=== PATIENT | female | born 1960 | race Caucasian/White ===

== ENCOUNTER 2020-07-11 07:52 | Emergency (ER) | payer OTHER, BC, SELFPAY ==
[2020-07-11 08:03] VITALS: BP 133/88; PULSE 67; RESP 16; TEMP 36.7; O2SAT 98; BMI 25.8
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
== END 2020-07-11 09:31 | disposition home or self-care (01) ==
LOC: HO.ED 08:16
PROVIDERS: Emergency Provider Emergency Medicine
DX: S13.4XXA Sprain of ligaments of cervical spine, initial encounter (principal); S09.90XA Unspecified injury of head, initial encounter; V43.52XA Car driver injured in collision with other type car in traffic accident, initial encounter; Y93.89 Activity, other specified; Y92.414 Local residential or business street as the place of occurrence of the external cause; Y99.9 Unspecified external cause status
CPT/HCPCS: 70450; 72125; 99283; 99284

== ENCOUNTER 2020-09-07 16:49 | Outpatient (REF) | payer BC, SELFPAY | END 2020-09-07 16:50 | disposition home or self-care (01) | LOC: HO.LAB 16:49 | PROVIDERS: Visit Provider Internal Medicine | DX: Z20.828 Contact with and (suspected) exposure to other viral communicable diseases (principal) | CPT/HCPCS: C9803; U0003 ==

== ENCOUNTER 2021-10-01 14:27 | Outpatient (REF) | payer BC, SELFPAY ==
[2021-10-01 15:20] LABS: Influenza A PCR NEGATIVE (Negative); Influenza B PCR NEGATIVE (Negative); Resp Syncy Virus RNA Qual PCR NEGATIVE (Negative); SARS COV2 PCR INHOUSE POSITIVE (Negative)
== END 2021-10-01 14:28 | disposition home or self-care (01) ==
LOC: HO.LNP 14:27
PROVIDERS: Visit Provider Physician Assistant
DX: Z20.822 Contact with and (suspected) exposure to COVID-19 (principal)
CPT/HCPCS: 0241U

== ENCOUNTER 2021-10-12 14:37 | Outpatient (REF) | payer BC, SELFPAY ==
--- NOTE | ~2021-10-12 | MM_ITS ---
EXAMINATION: MM SCREENING DIGITAL BREAST TOMOSYNTHESIS, BILATERAL CLINICAL INFORMATION: Screening. Asymptomatic. The lifetime risk of breast cancer based on the Tyrer-Cuzick Model is 8%. COMPARISON: Outside mammography: 06/23/2019, 02/13/2017 (Kiersten Amado). TECHNIQUE: Digital breast tomosynthesis is performed in both the craniocaudal and mediolateral oblique views along with computer-aided detection (CAD). Synthesized 2D images are generated from the tomosynthesis. Additional left MLO view is provided. FINDINGS: There are scattered areas of fibroglandular density (ACR BI-RADS breast composition Category b). There are no significant masses, abnormal calcifications, or other abnormalities. Background stromal densities are stable. There are dermal lesions again seen overlying the posterior medial bilateral breasts. There is no developing density or architectural abnormality. The axilla are unremarkable. No significant changes from outside studies. MM/MM tomosynthesis screening BI IMPRESSION: No mammographic evidence of malignancy. ASSESSMENT: BI-RADS 2: Benign RECOMMENDATION: Routine annual mammography screening. This patient's information was entered into a reminder system with a target due date for their next mammogram.
== END 2021-10-12 14:38 | disposition home or self-care (01) ==
LOC: HO.MAMMO 14:37
PROVIDERS: PCP Internal Medicine; Visit Provider Internal Medicine
DX: Z12.31 Encounter for screening mammogram for malignant neoplasm of breast (principal)
CPT/HCPCS: 77063; 77067

== ENCOUNTER 2022-01-26 17:57 | Emergency (ER) | payer OTHER, BC, SELFPAY ==
[2022-01-26 18:03] VITALS: BP 140/93; PULSE 90; RESP 16; TEMP 36.8; O2SAT 99; BMI 25.8
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
[2022-01-26] MEDS: Diphth,Pertus(ACell),Tet Adult 0.5 ML SYRINGE IM (18:54)
== END 2022-01-26 19:02 | disposition home or self-care (01) ==
PROVIDERS: Emergency Provider Emergency Medicine Emergency Medical Services
DX: M79.5 Residual foreign body in soft tissue (principal); Z18.33 Retained wood fragments
CPT/HCPCS: 90471; 90715; 99283; 99284

== ENCOUNTER 2022-10-17 15:39 | Outpatient (REF) | payer OTHER, BC, SELFPAY ==
--- NOTE | ~2022-10-17 | MM_ITS ---
EXAMINATION: MM SCREENING DIGITAL BREAST TOMOSYNTHESIS, BILATERAL CLINICAL INFORMATION: Screening. Asymptomatic. The lifetime risk of breast cancer based on the Tyrer-Cuzick Model is 8.9%. COMPARISON: Mammography: October 12, 2021 and studies dating back to February 13, 2017 TECHNIQUE: Digital breast tomosynthesis is performed in both the craniocaudal and mediolateral oblique views along with computer-aided detection (CAD). Synthesized 2D images are generated from the tomosynthesis. FINDINGS: There are scattered areas of fibroglandular density (ACR BI-RADS breast composition Category b). There are no significant masses, abnormal calcifications, or other abnormalities. MM/MM tomosynthesis screening BI IMPRESSION: No significant changes from prior exam. ASSESSMENT: BI-RADS 1: Negative RECOMMENDATION: Routine annual mammography screening. This patient's information was entered into a reminder system with a target due date for their next mammogram.
== END 2022-10-17 15:40 | disposition home or self-care (01) ==
LOC: HO.MAMMO 15:39
PROVIDERS: PCP Internal Medicine; Visit Provider Internal Medicine
DX: Z12.31 Encounter for screening mammogram for malignant neoplasm of breast (principal)
CPT/HCPCS: 77063; 77067

== ENCOUNTER → 2023-10-23 15:15 | Outpatient (BNV) | payer OTHER, SELFPAY | PROVIDERS: PCP Internal Medicine; Visit Provider Radiology Diagnostic Radiology | DX: Z12.31 Encounter for screening mammogram for malignant neoplasm of breast (principal) | CPT/HCPCS: 77063; 77067 ==

== ENCOUNTER 2023-10-23 15:23 | Outpatient (REF) | payer OTHER, SELFPAY | END 2023-10-23 15:24 | disposition home or self-care (01) | LOC: HO.MAMMO 15:23 | PROVIDERS: PCP Internal Medicine; Visit Provider Internal Medicine | DX: Z12.31 Encounter for screening mammogram for malignant neoplasm of breast (principal) | CPT/HCPCS: 77063; 77067 ==

== ENCOUNTER 2025-05-11 12:52 | Outpatient (REF) | payer OTHER, SELFPAY ==
--- OUTSIDE RECORDS SUMMARY | 2024-05-25 04:00 | XMS_ITS | Encounter Summary ---
Author Name [facility] Address [address] [place] [address] Care Team Providers Care Geophysical Manager Name Role Phone HEMA [place]SLOW Primary Care Provider Unavailabl e Insurance Providers: All historical and current Section Date Range: From patient's date of to the date document was created. This section includes the names of all active insurance providers for the patient. Insurance Provider Type of Coverage Plan Name Start of Policy Coverage End of Policy Coverage Group Number Member ID Insurance Provider's Telephone Number Policy Castro's Name Patient's Relationship to Policy Castro CATHIE BCBS CT FEDERAL PREFERRED PROVIDER ORGANIZAT ION (PPO) STAND [place]RI[place] SELF + ONE Oct 12, 2022 [id number] [phone] ARMIDA CUBA PATIENT BCBS [place] FEP PREFERRED PROVIDER ORGANIZAT ION (PPO) PSHB STD SELF PLUS 1 Sep 29, 2024 [id number] [phone] ARMIDA CUBA PATIENT [place] PREFERRED PROVIDER ORGANIZAT ION (PPO) PSHB STAND [place]RI[place] SELF+ 1 Sep 29, 2024 [id number] [phone] ARMIDA CUBA PATIENT [place] FEP DENTAL DENTAL INSURANCE STAND BEATRIZ Oct 04, 2017 DENTAL [id number] [phone] ARMIDA CUBA PATIENT [place] FEP BCBS PRESCRIPT ION CAREM ARK FEPRX Oct 12, 2022 [id number] ARMIDA CUBA PATIENT [place] FEP BCBS PRESCRIPT ION CAREM ARK FEPRX PLAN Oct 04, 2017 [id number] AMRIDA CUBA PATIENT [place]-F EP BCBS PRESCRIPT ION FEP CAREM ARK Oct 04, 2017 [id number] ARMIDA CUBA PATIENT Selected Encounter This section includes the information on record at [facility] for the Encounter. Date/Time Encounter Type Encounter Description Reason Provider Source May 25, 2024 08:00 AM OFF/OP EST JANUARY X REQ PH[facility] ICD-10-CM Z71.89 Other specified counseling THEA DIAZ Katya Encounter Template Text not used by [place] Assessments - Encounter Diagnoses This section includes the primary and secondary diagnoses documented for the Encounter. Date/Time Primary/Secondary Diagnosis Diagnosis Name Provider Source May 25, 2024 04:27 PM PRIMARY Other specified counseling THEA DIAZ MUKESH Plan of Treatment: Future Appointments (+ 6 months) and Future Tests (+/- 45 days) The Plan of Treatment section includes future care activities for the [facility] This section includes future appointments and future orders which are active, pending or scheduled. Future Appointments This section includes appointments that were scheduled to occur 6 months from the date of the Encounter, up to a maximum of 20 appointments. The data comes from all [place] treatment facilities. Appointment Date/Time Appointment Type Appointme nt Facility Name Jun 22, 2024 08:00 AM AMBULATORY - PSYCHIATRY [facility] Jul 20, 2024 09:00 AM AMBULATORY - PSYCHIATRY [facility] Jul 20, 2024 12:00 PM AMBULATORY PSYCHIATRY [facility] Aug 19, 2024 10:00 AM AMBULATORY - MEDICINE [facility] Oct 12, 2024 08:00 AM AM[facility]ATORY - MEDICINE [facility] [place] [facility] Active, Pending, and Scheduled Orders This section includes a listing of several types of active, pending, and scheduled orders, including clinic medications orders, diagnostic test orders, procedure orders and consult orders; where the start date of the order is 45 days before the date of the Encounter or 45 days after the date of theEncounter. The data comes from all [facility]. Test Date/Time Test Type Test Details Facility Name Apr 27, 2024 12:00 AM Laboratory - Chemistry Order BASIC METABOLIC PANEL (fasting) BLOOD (SST-SERUM) [facility] Apr 27, 2024 12:00 AM Laboratory - Chemistry Order LIPID PANEL FASTING BLOOD (SST-SERUM) [facility] Apr 27, 2024 12:00 AM Laboratory - Chemistry Order LIVER FUNCTION BLOOD (SST-SERUM) [facility] Apr 27, 2024 12:00 AM Laboratory - Chemistry Order CBC AND DIFF (AUTO) BLOOD (LAV-BLOOD) [facility] Apr 27, 2024 12:00 AM Laboratory - Chemistry Order HEMOGLOBIN A1C PANEL BLOOD (LAV-BLOOD) [facility] Apr 27, 2024 12:00 AM Laboratory - Chemistry Order TSH BLOOD (SST-SERUM) [facility] Apr 27, 2024 12:00 AM Laboratory - Chemistry Order VITAMIN B12 BLOOD (SST-SERUM) [facility] Apr 27, 2024 12:00 AM Laboratory - Chemistry Order CALCIUM BLOOD (SST-SERUM) [facility] Apr 27, 2024 12:00 AM Laboratory - Chemistry Order VITAMIN B-1 (THIAMINE)-(QU) BLOOD (LAV-PLASMA) [facility] Apr 27, 2024 12:00 AM Laboratory - Chemistry Order MAGNESIUM BLOOD (SST-SERUM) [facility] Apr 27, 2024 12:00 AM Laboratory - Chemistry Order VITAMIN D 25-OH (Therapy monitor) BLOOD (SST-SERUM) [facility] Social History: Smoking Status (Most current) and Tobacco Use (All prior to encounter date) This section includes the most current, and the historical, smoking and tobacco- related health factors from the [place] facility where the Encounter took place. Current Smoking Status This section includes the most current smoking, or tobacco-related health factor, from the [place] facility where the Encounter took place. Date/Time Current Smoking Status Comment Magdalena cruz Apr 20, 2024 09:00 AM VA-TOBACCO NEVER USED [facility] Tobacco Use History This section includes a history of the smoking, or tobacco-related health factors, that were collected on or before the date of the Encounter. The data comes from the [place] facility where the Encounter took place. Date/Time Smoking Status/Tobacco Use Comment F acility Apr 22, 2023 09:00 AM VA-TOBACCO NEVER USED [facility] Apr 23, 2022 02:30 PM VA-TOBACCO NEVER USED [facility] Dec 26, 2020 10:00 AM VA-TOBACCO FORMER USER [facility] Dec 26, 2020 10:00 AM VA-TOBACCO QUIT 5 TO < 15 YRS [facility] Apr 12, 2019 02:03 PM VA-TOBACCO FORMER USER [facility] Apr 12, 2019 02:03 PM VA-TOBACCO QUIT 1 TO < 5 YRS [facility] Sep 07, 2018 10:54 AM VA-TOBACCO DOESNT USE WI 30 MIN WAKEUP [facility] Sep 07, 2018 10:54 AM VA-TOBACCO USE > 1 5 LESS THAN 30 YEARS [facility] Sep 07, 2018 10:54 AM VA-TOBACCO USE ADVICE [facility] Sep 07, 2018 10:54 AM VA-TOBACCO USE PHYSICAL THERAPIST CLINIC DIRECTOR NO [facility] Sep 07, 2018 10:54 AM VA-TOBACCO USE MED NO [facility] Sep 07, 2018 10:54 AM VA-TOBACCO USER SOME DAYS [facility] Oct 08, 2017 11:04 AM V1-PT NOT INTEREST ED IN QUIT TOBACCO USE [facility] Jan 10, 2017 10:36 AM CURRENT SMOKER Cigarettes-restarted after suicide attempt 5 years ago [facility] Jan 10, 2017 10:36 AM V1-PT NOT INTEREST ED IN QUIT TOBACCO USE [facility] Dec 25, 2016 11:12 AM CURRENT SMOKER [facility] Jun 21, 2016 08:42 AM V1-PT DECLINES REF TO TOBACCO CESS PRGM [facility] Jun 21, 2016 08:42 AM V1-PT DECLINES TOB ACCO CESSATION MEDS [facility] Jun 21, 2016 08:42 AM V1-PT THINKING ABO UT QUIT TOBACCO USE [facility] Dec 01, 2015 09:44 AM V1-PT NOT INTEREST ED IN QUIT TOBACCO USE [facility] Oct 06, 2015 10:30 AM CURRENT SMOKER 2 cigs per d [facility] Oct 07, 2011 11:09 AM LIFETIME NON-TOBACCO USER [facility] Jul 30, 2010 01:09 PM QUIT TOBACCO USE IN PAST YEAR [facility] Sep 04, 2009 11:19 AM CURRENT SMOKER one cigarets per week [facility] Sep 04, 2009 11:19 AM V1-PT DECLINES REF TO TOBACCO CESS PRGM [facility] Sep 04, 2009 11:19 AM V1-PT DECLINES TOB ACCO CESSATION MEDS [facility] Sep 04, 2009 11:19 AM V1-PT NOT INTEREST ED IN QUIT TOBACCO USE [facility] Advance Directives: All historical and current Section Date Range: From patient's date of to the date document was created. This section includes ALL of a patient's completed or amended [place] Advance and Rescinded Directives. The entries below indicate that a directive exists for the patient, but an actual copy is not included with this document. The data comes from all [place] facilities. Date Advance Directives Provider Source Nov 18, 2012 ADVANCE DIRECTIVE DERRICK DENNY [facility] Encounter Notes: All associated encounter notes This section contains the clinical notes associated to the Encounter. Date/Time Encounter Note(s) Provider Source May 25, 2024 04:17 PM SOCIAL WORK NOTE: LOCAL TITLE: SOCIAL WORK NOTE STANDARD TITLE: SOCIAL WORK NOTE DATE OF NOTE: MAY 25, 2024@16:17 ENTRY DATE: MAY 25, 2024@16:17:56 AUTHOR: THEA DIAZ EXP COSIGNER: URGENCY: STATUS: COMPLETED is seen for monthly supportive visits for treatment of depression. Armida and her Lisa took a 7 day vacation to [facility], they have a time share there. They have been there before, Lisa likes the [employer], they saw several shows. Overall the time away was good. The airport can be difficult for Lisa. She worries about Lisa, he is not always compliant w treatment, she worries about his breathing, I try to encourage him to do the exercises and things the doctor has told him, but if he doesn't want to do something, what can I do?... He's always been this way... She spoke about her son Davion. He is self employed, does home repairs. He has abused alcohol in the past, at least 2 DUI's w suspended driver guide's license, and many court and legal fees. She believes he is doing much better now but does worry about him. Anatoliy remains much the same, stays to himself, doesn't want any type of MH care. She wishes Lisa would be more understanding of him and more patient. She did join [employer], is on an email group, she hopes to join her first virtual group tomorrow. is polite, conversational, casually dressed, appears relaxed. is managing. She takes time off of work and does not tell Lisa, I enjoy being by myself w no one bothering me . Saw Medical recently, no new concerns. RTC 1mo /es/ JUDE Cabral FILLING STATION LABORER Signed: 05/25/2024 16:28 THEA DIAZ [facility]
--- NOTE | ~2025-05-11 | MM_ITS ---
EXAMINATION: MM SCREENING DIGITAL BREAST TOMOSYNTHESIS, BILATERAL CLINICAL INFORMATION: Screening. Asymptomatic. COMPARISON: Comparison made to multiple prior, most recent October 23, 2023, and most remote February 13, 2017. TECHNIQUE: Digital breast tomosynthesis is performed in both the craniocaudal and mediolateral oblique views along with computer-aided detection (CAD). FINDINGS: BREAST COMPOSITION: There are scattered areas of fibroglandular density (ACR BI-RADS breast composition Category b). BILATERAL BREASTS: No significant masses, suspicious calcifications or other abnormalities are seen in either breast. MM/MM tomosynthesis screening BI IMPRESSION: BILATERAL BREASTS: Negative, no mammographic evidence of malignancy. Normal interval follow-up is recommended in 12 months. ASSESSMENT: BI-RADS 1 - Negative RECOMMENDATION: Routine annual mammography screening. FOLLOW-UP: 1 year F/U This examination should not preclude the clinical evaluation of a suspicious palpable abnormality. This patient's information was entered into a reminder system with a target due date for their next mammogram. Electronically signed by: Nehemiah Rodas MD 05/16/2025 08:15 PM EDT
--- OUTSIDE RECORDS SUMMARY | 2025-05-11 13:24 | XMS_ITS | Patient Health Record ---
Author Organization [facility] Address [address] [place] [address] Care Team Providers Care B2B Sales Consultant Name Role Phone Soy Kaiser Primary Care Provider Ray Dorantes Unavailable [phone] Allergies Allergen (clinical drug ingredient) Drug/Non Drug Allergy documented on EMR Reaction Allergy Type Onset Date Status codeine Codeine vomiting Drug Allergy Active Reason For Referral No Information Medications Medication SIG (Take, Route, Frequency, Duration) Notes Start Date End Date Status Salicylic Acid Not-T aking Bupropion & Diet Manage Prod Not-Taking Omeprazole 20 MG 1 capsule 30 minutes before morning meal Orally Once a day; Duration: 30 day(s) Active Mirtazapine 30 MG 1 tablet at bedtime Orally Once a day; Duration: 30 day(s) Active Melatonin Active Centrum Active Calcium & Magnesium Carbonates Active buPROPion HCl Active Atorvastatin Calcium 40 MG 1 tablet Orally Once a day; Duration: 30 days Active valACYclovir HCl 1 GM 1 tablet Orally On ce a day; Duration: 10 day(s) Not-Taking Sulfamethoxazole-TMP DS Not-Taking Social History Tobacco Use: Social History Observation Description Date Details (start date - stop date) Former Smoker NA - NA Tobacco Use/Smoking Question Answer Notes Are you a: former smoker Additional Findings: Tobacco Non-User Current no n-smoker Alcohol Screen Question Answer Notes Did you have a drink containing alcohol in the p ast year? Yes Points 0 Interpretation Negative Tobacco use other than smoking: Question Answer Notes Are you an other tobacco user? No Plan Of Treatment No Information Insurance Providers Payer Name Payer Address Payer Phone Subscriber Number Group Number Insured Name Patient Relationship to Insured Coverage Start Date Coverage End Date [employer] [address] [place] [address] [id number] Sarah Carrasco Self - patient is the insured Medical (General) History Medical History History ICD Code Back,Hip,and Knee pain CAD (Cholesterol) Chicken pox depressive disorder Diverticulosis Gastroesophageal reflux disease (GERD) Hyperlipidemia H. Pylori Proteinuria Reflux ( GERD) Warts Surgical History Surgery Date(Month/Year) tubal ligation 1995 tonsillectomy and adenoidectomy 1966
--- OUTSIDE RECORDS SUMMARY | 2025-05-11 13:24 | XMS_ITS | Encounter Summary ---
Author Organization [facility] Address [address] [place] [address] [place] [phone] Phone Care Team Providers Care Clinical Research Manager Name Role Phone Luly Malhotra MD Primary Care Provider + [phone] Luly Malhotra MD Primary Care Provider + [phone] Encounter Details Date Type Department Care Team (Late st Contact Info) Description 06/07/2019 Ancillary Orders Virtual Department [address] [place] [address] Sima Guan MD [address] [place] [address] Breast screening Social History Tobacco Use Types Packs/Day Years Used Date Smoking Tobacco: Never Assessed Comments Unknown Sex and Gender Information Value Date Recorded Sex Assigned at Not on file Legal Sex Female 9:47 PM EDT Gender Identity Not on file Sexual Orientation Not on file documented as of this encounter Plan of Treatment Not on file documented as of this encounter Results * BI MAMMOGRAM SCREENING WITH TOMOSYNTHESIS WITH CAD (BILATERAL) (06/23/2019 8:17 AM EDT) Anatomical Region Laterality Modality Breast Left, Breast Right, Breast Bilateral Bila teral Mammography 06/25/2019 4:25 PM EDT Impressions 06/25/2019 4:27 PM EDT RIGHT breast: No mammographic evidence of malignancy. LEFT breast: No mammographic evidence of malignancy. RECOMMENDED FOLLOWUP: Routine screening mammography is recommended, as clinically appropriate. The results will be sent by mail to the patient. BI-RADS CATEGORY: 2 - Benign finding. BREAST COMPOSITION: There are scattered fibroglandular densities. POS - [id number] Narrative 06/25/2019 4:27 PM EDT EXAM: BI MAMMOGRAM SCREENING WITH TOMOSYNTHESIS WITH CAD (BILATERAL) HISTORY: Screening. * Annual Breast screening COMPARISON: Prior mammograms, most recent 02/13/2017 and dating back to 11/17/2009. TECHNIQUE: Digital breast tomosynthesis was performed in CC and MLO projections. Reconstructed 2-D C-views generated from the tomosynthesis images. Images interpreted in conjunction with R-2 Image Online Banking Specialist computer-aided detection (CAD). FINDINGS: BREAST COMPOSITION: There are scattered areas of fibroglandular density. RIGHT breast: There are no suspicious masses, suspicious areas of architectural distortion or suspicious clusters of microcalcifications. Skin lesion medial breast is unchanged. LEFT breast: There are no suspicious masses, suspicious areas of architectural distortion or suspicious clusters of microcalcifications. Procedure Note Mariajose Monteiro MD - 06/25/2019 EXAM: BI MAMMOGRAM SCREENING WITH TOMOSYNTHESIS WITH CAD (BILATERAL) HISTORY: Screening. * Annual Breast screening COMPARISON: Prior mammograms, most recent 02/13/2017 and dating back to11/17/2009. TECHNIQUE: Digital breast tomosynthesis was performed in CC and MLOprojections. Reconstructed 2-D C-views generated from the tomosynthesisimages. Images interpreted in conjunction with R-2 Image Checkercomputer-aided detection (CAD). FINDINGS: BREAST COMPOSITION: There are scattered areas of fibroglandular density. RIGHT breast: There are no suspicious masses, suspicious areas ofarchitectural distortion or suspicious clusters of microcalcifications.Skin lesion medial breast is unchanged. LEFT breast: There are no suspicious masses, suspicious areas ofarchitectural distortion or suspicious clusters of microcalcifications. IMPRESSION: RIGHT breast: No mammographic evidence of malignancy. LEFT breast: No mammographic evidence of malignancy. RECOMMENDED FOLLOWUP: Routine screening mammography is recommended, asclinically appropriate. The results will be sent by mail to the patient. BI-RADS CATEGORY: 2 - Benign finding. BREAST COMPOSITION: There are scattered fibroglandular densities. POS - CDHMAM2 us Sima Guan MD IMG MG EXAMS Final Resu lt documented in this encounter Visit Diagnoses Diagnosis Breast screening Breast screening, unspecified Breast screening Breast screening, unspecified documented in this encounter Care Teams Clinical Research Manager Relationship Specialty Start Date End Date Luly Malhotra MD PCP - General Internal Medicine 06/08/19 02/17/24 Luly Malhotra MD [address] [place] [address] PCP - General Internal Medicine 02/18/24 documented as of this encounter Additional Source Comments The information contained in this document represents components of the legal health record. It is not the complete legal health record.[facility]
--- OUTSIDE RECORDS SUMMARY | 2025-05-11 13:24 | XMS_ITS | Clinical Summary ---
Author Organization [facility] Address [address] [place] [address] Care Team Providers Care Orthopedic Tech Name Role Phone Unavailable Primary Care Provider Unavailabl e Social History Tobacco Use Types Packs/Day Years Used Date Smoking Tobacco: Never Assessed Comments Unknown Sex and Gender Information Value Date Recorded Sex Assigned at Not on file Legal Sex Female 2:53 PM EDT Gender Identity Not on file Sexual Orientation Not on file Plan of Treatment Health Maintenance Due Date Last Done Comments Hepatitis C Virus Screening 1960 HIV Screening 1973 DTaP/Tdap/Td Vaccines (1 - Tdap) 12/01/1979 Pap Smear (Ages 21-65) 1981 Mammogram 2000 Colonoscopy 2005 Pneumococcal Vaccines 50+ (1 of 1 - PCV) 2010 Zoster (Shingles) Vaccine (1 of 2) 2010 COVID-19 Vaccine ( - 2023-2 5 season) 2024 Influenza Vaccine 04/29/2025 RSV Vaccine 60 years and old er and Patients (1 - 1-dose 75+ series) 12/01/2035 Hepatitis B Vaccines Aged Out No long er eligible based on patient's age to complete this topic Insurance [employer]ERAL Member Subscriber Plan / Payer (Ef fective 2024-Present) Name:Sarah Carrasco Relation to Subscriber:Self Name:Sarah Carrasco Payer ID:[id number] (NAIC) Group ID:[id number] Type:Not on file Address: [id number] [place] [address]
== END 2025-05-11 12:53 | disposition home or self-care (01) ==
LOC: HO.MAMMO 12:52
PROVIDERS: PCP Family Medicine; Visit Provider Family Medicine
DX: Z12.31 Encounter for screening mammogram for malignant neoplasm of breast (principal)
CPT/HCPCS: 77063; 77067

== ENCOUNTER → 2025-05-11 13:00 | Outpatient (BNV) | payer OTHER, SELFPAY | PROVIDERS: PCP Family Medicine; Visit Provider Radiology Body Imaging | DX: Z12.31 Encounter for screening mammogram for malignant neoplasm of breast (principal) | CPT/HCPCS: 77063; 77067 ==